=== PATIENT | male | born 2000 | race Hispanic/Latino ===

== ENCOUNTER 2019-08-01 08:20 | Emergency (ER) | payer MEDICAID, OTHER | END 2019-08-01 09:20 | disposition home or self-care (01) | LOC: EDH 08:20 | DX: L98.8 Other specified disorders of the skin and subcutaneous tissue (principal); N48.89 Other specified disorders of penis | CPT/HCPCS: 99281 ==

== ENCOUNTER 2020-04-10 06:56 | Emergency (ER) | payer OTHER ==
[2020-04-10] MEDS ORDERED: MORPHINE SULFATE 4 MG/1ML SYG ONE (07:53)
[2020-04-10] MEDS ORDERED: SODIUM CHLORIDE 0.9% 1000ML 1,000 ML IV ONE (08:13)
[2020-04-10] MEDS ORDERED: PROPOFOL 10 MG/ML 20ML VIAL IV ONE (08:22)
== END 2020-04-10 11:02 | disposition home or self-care (01) ==
LOC: EDH 06:56
DX: S43.084A Other dislocation of right shoulder joint, initial encounter (principal); S60.511A Abrasion of right hand, initial encounter; Z72.0 Tobacco use; Y04.2XXA Assault by strike against or bumped into by another person, initial encounter; Y93.89 Activity, other specified; Y92.89 Other specified places as the place of occurrence of the external cause; Y99.8 Other external cause status
CPT/HCPCS: 23650; 73030 ×2; 96372; 99152; 99285; J2270; J2704; J7030